=== PATIENT | female | born 1960 | race Caucasian/White ===

== ENCOUNTER 2017-12-01 10:56 | Outpatient (REF) | payer BC, SELFPAY ==
--- NOTE | 2017-12-01 10:30 | PAPFT_PTH ---
PATIENT: Jocelyn Wharton LOC: [facility] U#:[id number] AGE/SX: 57/F ROOM: RE12/01/[address]: RODNEY Marshall : 1960 BED: DIS: 12/01/2017 SPEC #: [id number] RECD: 12/01/17 12:55 STATUS: BLANCA REQ #: [id number] SAEID: 12/01/17 10:[address]: Zakia Hoover DEPT: [facility] Cytology RECD BY: Arleen Kinney ENTERED: 12/01/17 12:55 SP TYPE: PAPFT OTHR DR: Candice Solorio Tissues: 1 - CX/ENDOCX FOR PAP SMEARS Procedures: PAP THIN PREP/UVM Screening HPV DNA PROBE Comments: [id number]
== END 2017-12-01 10:57 ==
LOC: LBN 10:56
PROVIDERS: PCP Family Medicine; Visit Provider Nurse Practitioner Family
DX: Z12.4 Encounter for screening for malignant neoplasm of cervix (principal); Z11.51 Encounter for screening for human papillomavirus (HPV)
CPT/HCPCS: 88142; 87624

== ENCOUNTER 2017-12-18 00:20 | Outpatient (CLI) | payer BC, SELFPAY ==
--- NOTE | 2017-12-18 14:29 | DI.US_ITS ---
SYMPTOM/DIAGNOSIS: DYSPAREUNIA,LLQ PAIN, FREQUENT URINATION PELVIC ULTRASOUND: Transabdominal and transvaginal examination was performed. The uterus measures 8.7 by 4.3 by 4.7 cm. The endometrial stripe is within normal limits at .3 cm. No myometrial mass is present. Note is made of several cervical Nabothian cysts. The right ovary measures 2.4 by 1.4 by 2.4 cm. The left ovary measures 3 by 1.5 by 1.7 cm. The ovaries are unremarkable with normal blood flow. No free pelvic fluid or hydronephrosis is identified. IMPRESSION: Negative pelvic ultrasound.
== END 2017-12-18 00:40 ==
PROVIDERS: PCP Family Medicine; Visit Provider Nurse Practitioner Family
DX: R10.32 Left lower quadrant pain (principal); N94.10 Unspecified dyspareunia; R35.0 Frequency of micturition
CPT/HCPCS: 76830; 76856

== ENCOUNTER 2019-04-04 02:09 | Outpatient (CLI) | payer BC, SELFPAY ==
--- NOTE | 2019-04-04 16:10 | DI.MAMMO_ITS ---
EXAM: MG MAMMO SCREENING CLINICAL HISTORY: screening TECHNIQUE: Mammograms were interpreted according to the usual protocol including computer analysis w [employer] CAD system, tomosynthesis and C-view imaging. FINDINGS: The breasts are heterogeneously dense. No dominant mass or clumped microcalcification is identified in either breast. Current examination is compared with previous examinations including September 2016 and there has been no gross interval change in appearance in comparison with the previous studies. IMPRESSION: No specific evidence of malignancy at this time. Routine screening examinations are suggested at year ly intervals in this age group according to the ACS ACR guidelines. Category 1. Breast density, categ ory C. BI-RADS Cat 1 - Negative. Breast Density - Category C - Heterogeneously dense.
== END 2019-04-04 02:29 ==
PROVIDERS: PCP Family Medicine; Visit Provider Obstetrics & Gynecology Gynecology
DX: Z12.31 Encounter for screening mammogram for malignant neoplasm of breast (principal)
CPT/HCPCS: 77063; 77067

== ENCOUNTER 2019-12-05 09:40 | Outpatient (CLI) | payer BC, SELFPAY ==
--- NOTE | 2019-12-05 09:30 | DI.RAD_ITS ---
EXAM: XR WRIST LT COMPLETE CLINICAL HISTORY: L thumb pain. TECHNIQUE: 2D digital imaging was performed. COMPARISON: No exams were available for comparison FINDINGS: Tnwt-[id number] degenerative changes are seen at the 1st CMC joint characterized by joint space narr owing, subchondral sclerosis and periarticular spurring. The bones are intact and normally mineraliz ed. The soft tissues are unremarkable. 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 DATA REPOSITORY: RADIATION DOSE DELIVERED:
== END 2019-12-05 10:00 ==
PROVIDERS: PCP Family Medicine; Referring Provider Family Medicine; Visit Provider Physician Assistant
DX: M18.9 Osteoarthritis of first carpometacarpal joint, unspecified (principal)
CPT/HCPCS: 73110

== ENCOUNTER 2021-02-15 08:53 | Outpatient (REF) | payer BC, SELFPAY ==
[2021-02-15 17:33] LABS: ALT 28 U/L (14-59); AST 23 U/L (15-37); Albumin 4.2 g/dL (3.4-5.0); Alkaline Phosphatase 107 U/L (46-116); BUN 12 mg/dL (7-18); Bilirubin, Total 0.6 mg/dL (0.2-1.0); CREATININE 0.7 mg/dL (0.55-1.02); Calcium 9.2 mg/dL (8.5-10.1); Calculated LDL 145 mg/dL (<100); Chloride 107 mmol/L (98-107); Cholesterol 252 mg/dL (<200); Glucose 94 mg/dL (74-106); HDL Cholesterol 98 mg/dL (40-60); Potassium 4.6 mmol/L (3.5-5.1); Sodium 145 mmol/L (136-145); Total Protein 7.2 g/dL (6.4-8.2); Triglyceride 49 mg/dL (<150)
[2021-02-15 19:34] LABS: Vitamin D 25 Total 44.6 ng/mL (30-100)
== END 2021-02-15 08:54 | disposition home or self-care (01) ==
LOC: NCHCN 08:53
PROVIDERS: PCP Family Medicine; Visit Provider Family Medicine
DX: Z00.00 Encounter for general adult medical examination without abnormal findings (principal)
CPT/HCPCS: 80053; 80061; 82306

== ENCOUNTER 2021-02-22 16:10 | Outpatient (REF) | payer BC, SELFPAY ==
[2021-02-22 21:13] LABS: Iron 89 ug/dL (50-170); Total Iron Binding Capacity 340 ug/dL (250-450); Transferrin Sat 26 % (15-50)
[2021-02-22 21:44] LABS: Vitamin B12 620 pg/mL (193-986)
== END 2021-02-22 16:11 | disposition home or self-care (01) ==
LOC: NCHCN 16:10
PROVIDERS: PCP Family Medicine; Visit Provider Family Medicine
DX: D64.9 Anemia, unspecified (principal); R10.32 Left lower quadrant pain
CPT/HCPCS: 82607; 83540; 83550

== ENCOUNTER 2021-03-25 02:24 | Outpatient (CLI) | payer BC, SELFPAY ==
--- NOTE | 2021-03-25 15:30 | DI.MAMMO_ITS ---
Exam(s) MAMMO SCREENING EXAM: MAMMO SCREENING CLINICAL HISTORY: SCREENING MAMMOGRAM Z12.31 TECHNIQUE: Mammograms were interpreted according to the usual protocol including computer analysis w [employer] CAD system, tomosynthesis and C-view imaging. COMPARISON: 2011 through 2019 FINDINGS: The breasts are composed of heterogeneously dense fibroglandular densities, Breast Density category C . No suspicious masses or suspicious microcalcifications are seen. No skin thickening or abnormal axillary lymph nodes are seen. There has been no significant change from prior exams. IMPRESSION: BI-RADS Category 1, Negative mammogram. Yearly screening mammography is recommended. Breast Density Category C, heterogeneously Dense. The mammogram demonstrates the patient's breast tissue is dense. Dense breast tissue is very common a nd is not abnormal but dense breast tissue can make it harder to find cancer on a mammogram. Also, de nse breast tissue may increase breast cancer risk. This information about the result of the mammogram report was provided to the patient to raise their awareness. Use this report when you speak with the patient about their risks for breast cancer, which includes their family history. At that time, you may recommend additional screening tests (Ultrasound or MRI) as they might be useful based on their r isk. A negative radiographic report should not delay biopsy if a dominant or clinically suspicious mass is present. Up to ten percent of cancers are not identified on mammography. A negative report may reinforce clinical impression. Adenosis and dense breasts may obscure an underlying neoplasm. False positive reports average 6 to 10%.
== END 2021-03-25 02:44 ==
PROVIDERS: PCP Family Medicine; Visit Provider Family Medicine
DX: Z12.31 Encounter for screening mammogram for malignant neoplasm of breast (principal); R92.8 Other abnormal and inconclusive findings on diagnostic imaging of breast
CPT/HCPCS: 77063; 77067

== ENCOUNTER 2022-03-02 15:13 | Outpatient (REF) | payer BC, SELFPAY ==
--- NOTE | 2022-03-02 14:30 | PAPFT_PTH ---
PATIENT: Jocelyn Wharton LOC: [facility] U#:[id number] AGE/SX: 61/F ROOM: RE03/02/[address]: Tereza Horta : 1960 BED: DIS: 03/02/2022 SPEC #: [id number] RECD: 03/02/22 18:40 STATUS: BLANCA REQ #: [id number] SAEID: 03/02/22 14:[address]: Tereza Horta DEPT: [facility] Cytology RECD BY: Arleen Kinney ENTERED: 03/02/22 18:40 SP TYPE: PAPFT OTHR DR: Candice Solorio Tissues: 1 - CX/ENDOCX FOR PAP SMEARS Procedures: PAP THIN PREP/UVM Screening HPV DNA PROBE Comments: [id number]
== END 2022-03-02 15:14 | disposition home or self-care (01) ==
LOC: LBN 15:13
PROVIDERS: PCP Family Medicine; Visit Provider Obstetrics & Gynecology Gynecology
DX: Z12.4 Encounter for screening for malignant neoplasm of cervix (principal); Z11.51 Encounter for screening for human papillomavirus (HPV)
CPT/HCPCS: 88142; 87624

== ENCOUNTER → 2022-03-31 01:19 | Outpatient (CLI) | payer BC, SELFPAY ==
--- NOTE | 2022-03-31 07:00 | DI.MAMMO_ITS ---
Exam(s) MAMMO SCREENING EXAM: MAMMO SCREENING CLINICAL HISTORY: screening,Z12.39. TECHNIQUE: Bilateral full field digital CC and MLO mammographic images were obtained with 3D tomosyn thesis and utilizing computer aided detection (CAD). COMPARISON: Prior mammograms were reviewed. FINDINGS: There has been no significant change in the appearance and distribution of the fibroglandular tissue. There are no CAD designations. There are no new spiculated masses nor malignant appearing microcalcification groups. There is no significant architectural distortion nor skin thickening-retraction. IMPRESSION: No radiographic evidence of malignancy. BI-RADS Category 1 - Negative Breast Density - Category C - Heterogeneously dense Breast density Category C or D implies that the patient has dense breast tissue. Dense breast tissue can make it harder to find cancer on a mammogram. Dense breast tissue is also associated with an incr eased risk of breast cancer. This information about the result of the mammogram report was provided to the patient to raise their awareness. Use this report when you speak with the patient about their risks for breast cancer, which includes their family history. At that time, you may recommend additional screening tests (Ultrasoun d or MRI) as these tests may add significant information. A negative radiographic report should not delay biopsy if a dominant or clinically suspicious mass is present. Up to ten percent of cancers are not identified on mammography. A negative report may reinforce clinical impression. Adenosis and dense breasts may obscure an underlying neoplasm. False positive reports average 6 to 10%. Patient will receive a letter notifying them of these results.
== END ==
PROVIDERS: PCP Family Medicine; Visit Provider Family Medicine
DX: Z12.31 Encounter for screening mammogram for malignant neoplasm of breast (principal); R92.8 Other abnormal and inconclusive findings on diagnostic imaging of breast
CPT/HCPCS: 77063; 77067

== ENCOUNTER 2022-11-01 20:54 | Emergency (ER) | payer BC, SELFPAY ==
[2022-11-01 21:06] VITALS: BP 133/65; PULSE 57; RESP 16; TEMP 36.8; O2SAT 98
--- NOTE | 2022-11-01 21:18 | W.ED.GENAD ---
Discharge Plan Disposition Patient Disposition: Home Condition: Stable Discharge Details Clinical Impression: Laceration of right middle finger Primary Care Provider: Candice Solorio ED Provider: Zayda Potts Home Meds and New Rx's Prescriptions: New cephalexin 500 mg tablet 500 mg PO BID 5 Days Qty: 10 0RF No Action apple cider vinegar PO valacyclovir [Valtrex] 500 MG tablet 500 mg PO PRN PRN Discharge Instructions Instructions: Finger Laceration (ED), Steristrips (ED) Additional Instructions: Keep clean and dry. Steri-Strips will start to slough off in approximately 4 to 6 days. Keep your finger in the splint and keep it straight for the next 4 to 6 days to allow for better wound healing. Take the antibiotics as directed twice daily with yogurt or probiotic. Return to the ER or be seen sooner for any signs of infection, red streaks drainage swelling or tenderness or concerns. Please take Tylenol or Ibuprofen with food every 4-6 hours as needed for pain and swelling. Follow up with primary care provider in 3-5 days. Return to ED sooner if any worsening or concerns. Increase oral fluids. Referrals: Candice Solorio [Primary Care Provider] - Return if symptoms worsen Medical Decision Making 62 year old female presents to the ED with a chief complaint of right middle finger laceration on the dorsum side. This occurred approximately 2 hours prior to arrival. Patient reports that she was reaching in a broken jar to get some coconut oil out and sliced her finger. She does have full range of motion noted full flexion and extension distal CMS intact. She is up-to-date on her tetanus vaccination. Bleeding is controlled with pressure upon arrival. Discussed options with patient she prefers Dermabond and splinting with Steri-Strips as opposed to suturing. I did discuss the risks and benefits of each. Will place patient on proximately 5 days of cephalexin to treat empirically for infection due to laceration over the joint space. Wound cleaned with normal saline and chlorhexidine scrub by ED staff. Wound well approximated with Dermabond tissue adhesive and 4 Steri-Strips. Will place patient in an aluminum baseball splint. with a small nonadherant dressing. I did discuss strict return instructions and home care instructed her to keep it in the splint and straight for the next 4 to 6 days. Do not get wet. I did discuss directions to return for increased infection. Will place patient on cephalexin twice daily for the next 5 days. This text was generated using [employer] dictation system, please disregard any oddities of phrase or misspellings. HPI General Mode of arrival: ambulatory. Date/Time Provider Initiated Documentation: 11/01/22 21:08. Limitations to Documentation: no limitations. Information obtained by: patient, RN notes reviewed and old records reviewed. HPI Narrative: 62 year old female presents to the ED with a chief complaint of right middle finger laceration on the dorsum side. This occurred approximately 2 hours prior to arrival. Patient reports that she was reaching in a broken jar to get some coconut oil out and sliced her finger. She does have full range of motion noted full flexion and extension distal CMS intact. She is up-to-date on her tetanus vaccination. Bleeding is controlled with pressure upon arrival. Related Data Home Medications Medication Instructions Recorded Confirmed valacyclovir 500 mg tablet 500 mg PO PRN PRN 03/31/15 03/02/22 (Valtrex) apple cider vinegar PO 01/30/20 03/02/22 cephalexin 500 mg tablet 500 mg PO BID 5 days #10 tabs 11/01/22 Previous Rx's Medication Instructions Recorded cephalexin 500 mg tablet 500 mg PO BID 5 days #10 tabs 11/01/22 Allergies Allergy/AdvReac Type Severity Reaction Status Date / Time acetaminophen Allergy Intermediate Hives Verified 11/01/22 21:10 General Stated Complaint: Laceration DIEGO: 4 Review of Systems All systems reviewed & are unremarkable except as noted in HPI and below Integumentary/Breasts Skin/Breast: Reports as per HPI and Reports wounds PFSH All Active Problems (Updated 11/01/22 @ 22:08 by Zayda Potts NP) Laceration of right middle finger (Acute) Left lateral epicondylitis (Acute) Tendonitis of left rotator cuff (Acute) Osteoarthritis of carpometacarpal (CMC) joint of left thumb (Acute) DEPO MEDROL 10/08/21 Carpal tunnel syndrome, right (Acute) Dyspareunia (Acute 12/01/17) Diverticulosis of intestine without bleeding (Acute 12/01/17) Medical History diverticulitis Dyspareunia Onset 09/2017. Nl pelvic u/s. Herpes simplex Mass of breast, right Surgical History Colonoscopy - IV Sedation (01/19/16) cryosurgery skin pulmonic valve replacement (~1966) Tonsillectomy Family History Father Hypertension Social History (Updated 03/02/22 @ 14:41 by Tereza Horta MD) Smoking/Tobacco Use Status: Never Smoking risk assessment performed?: Yes Alcohol Intake: current Alcohol Intake frequency: a few times a week Alcohol type: wine Counseling given: No Drug use: Never Substance use type: does not use Household members: spouse and other Details: H-Cristobal Number of Children: 2 current occupation: svp business development. [employer] Do you feel safe at home: Yes Do you feel safe in your relationship?: Yes Additional Social history: Children: Alina 33, Maddie 31 Female Reproductive History Menstrual control method: permanent sterilization ( vasectomy) Menopause type: natural History History 2 Para 2 Hx # Term Pregnancies 2 Multiple births Hx # Pregnancies Ectopic pregnancies AB induced Hx Number of Living Children 2 AB spontaneous Exam Extrem Right upper extremity: hand Details: laceration 3rd digit dorsal aspect central Details: linear, with motor nerve function intact and with sensation intact Hand/finger images: 1. Approximately 2-1/2 to 3 cm linear laceration noted to the dorsum of the right middle finger extends just medial to the PIP joint. Course Vital Signs Vital signs: Vital Signs Temperature 36.8 C 11/01/22 21:06 Pulse 57 L 11/01/22 21:06 Respiratory Rate 16 11/01/22 21:06 Blood Pressure 133/65 11/01/22 21:06 Pulse Oximetry 98 11/01/22 21:06 Temperature 36.8 C 11/01/22 21:06 Temperature Source Oral 11/01/22 21:06 Pulse 57 L 11/01/22 21:06 Respiratory Rate 16 11/01/22 21:06 Respiratory Effort Normal 11/01/22 21:08 Blood Pressure 133/65 11/01/22 21:06 Pulse Oximetry 98 11/01/22 21:06 Oxygen Delivery Method Room Air 11/01/22 21:06 Oxygen Flow Rate 0 11/01/22 21:06 Pain Level 4 11/01/22 21:06
[2022-11-01] MEDS: Cephalexin 500 MG CAP PO (21:37)
== END 2022-11-01 22:12 | disposition home or self-care (01) ==
PROVIDERS: Emergency Provider Registered Nurse Emergency; PCP Family Medicine
DX: S61.212A Laceration without foreign body of right middle finger without damage to nail, initial encounter (principal); W25.XXXA Contact with sharp glass, initial encounter; Y93.63 Activity, rugby; Y92.010 Kitchen of single-family (private) house as the place of occurrence of the external cause; Y99.9 Unspecified external cause status
CPT/HCPCS: 29130; 99282

== ENCOUNTER 2022-12-08 22:09 | Outpatient (REF) | payer BC, SELFPAY ==
[2022-12-08 22:30] LABS: Anion Gap 8.1 mmol/L (3-11); BUN 9 mg/dL (7-18); CO2 28.9 mmol/L (21.0-32.0); CREATININE 0.7 mg/dL (0.55-1.02); Calcium 9.4 mg/dL (8.5-10.1); Calculated LDL 127 mg/dL (<100); Chloride 103 mmol/L (98-107); Cholesterol 249 mg/dL (<200); Estimated GFR 97.12 (mL/min/1.73m2); Glucose 86 mg/dL (74-106); HDL Cholesterol 105 mg/dL (40-60); Sodium 140 mmol/L (136-145); Triglyceride 88 mg/dL (<150)
== END 2022-12-08 22:10 | disposition home or self-care (01) ==
LOC: NCHCN 22:09
PROVIDERS: PCP Family Medicine; Visit Provider Family Medicine
DX: Z00.00 Encounter for general adult medical examination without abnormal findings (principal); Z13.220 Encounter for screening for lipoid disorders; Z13.228 Encounter for screening for other metabolic disorders
CPT/HCPCS: 80048; 80061

== ENCOUNTER → 2023-04-06 01:48 | Outpatient (CLI) | payer BC, SELFPAY ==
--- NOTE | 2023-04-06 12:22 | DI.MAMMO_ITS ---
Exam(s) MAMMO SCREENING EXAM: MAMMO SCREENING CLINICAL HISTORY: SCREENING, Z12.31 TECHNIQUE: Bilateral full field digital CC and MLO mammographic images were obtained with 3D tomosyn thesis and utilizing computer aided detection (CAD). COMPARISON: Available for comparison. FINDINGS: Masses/Architectural Distortion: None seen. Microcalcifications: No suspicious pleomorphic-type are seen. Skin Thickening/Nipple Retraction: None. IMPRESSION: 1. No significant interval change with no specific features of malignancy noted. 2. Unless there is more urgent need, screening mammography is recommended, as per [place] [employer] guidelines. BI-RADS Category 1 - Negative Breast Density - Category C - Heterogeneously dense Breast density category C or D implies that the patient has dense breast tissue. Dense breast tissue is very common and is not abnormal but dense breast tissue can make it harder to find cancer on a ma mmogram. Also, dense breast tissue may increase their breast cancer risk. This information about the result of the mammogram report was provided to the patient to raise their awareness. Use this report when you speak with the patient about their risks for breast cancer, which includes their family hist ory. At that time, you may recommend for more screening tests (Ultrasound or MRI) as they might be us eful based on their risk. A negative radiographic report should not delay biopsy if a dominant or clinically suspicious mass is present. Up to ten percent of cancers are not identified on mammography. A negative report may reinforce clinical impression. Adenosis and dense breasts may obscure an underlying neoplasm. False positive reports average 6 to 10%. Patient will receive a letter notifying them of these results.
== END ==
PROVIDERS: PCP Family Medicine; Visit Provider Family Medicine
DX: Z12.31 Encounter for screening mammogram for malignant neoplasm of breast (principal)
CPT/HCPCS: 77063; 77067

== ENCOUNTER 2024-05-03 00:13 | Outpatient (CLI) | payer BC, SELFPAY ==
--- NOTE | 2024-05-03 | DI.MAMMO_ITS ---
Exam(s) MAMMO SCREENING EXAM: MAMMO SCREENING CLINICAL HISTORY: SCREENING,Z12,31 TECHNIQUE: Bilateral full field digital CC and MLO mammographic images were obtained with 3D tomosyn thesis and utilizing computer aided detection (CAD). COMPARISON: Available for comparison. FINDINGS: Masses/Architectural Distortion: None seen. Microcalcifications: No suspicious pleomorphic-type are seen. Skin Thickening/Nipple Retraction: None. IMPRESSION: 1. No significant interval change with no specific features of malignancy noted. 2. Unless there is more urgent need, screening mammography is recommended, as per [place] [employer] guidelines. BI-RADS Category 1 - Negative Breast Density - Category C - Heterogeneously dense Breast density category C or D implies that the patient has dense breast tissue. Dense breast tissue is very common and is not abnormal but dense breast tissue can make it harder to find cancer on a ma mmogram. Also, dense breast tissue may increase their breast cancer risk. This information about the result of the mammogram report was provided to the patient to raise their awareness. Use this report when you speak with the patient about their risks for breast cancer, which includes their family hist ory. At that time, you may recommend for more screening tests (Ultrasound or MRI) as they might be us eful based on their risk. A negative radiographic report should not delay biopsy if a dominant or clinically suspicious mass is present. Up to ten percent of cancers are not identified on mammography. A negative report may reinforce clinical impression. Adenosis and dense breasts may obscure an underlying neoplasm. False positive reports average 6 to 10%. Patient will receive a letter notifying them of these results.
== END 2024-05-03 00:33 ==
PROVIDERS: PCP Family Medicine; Visit Provider Family Medicine
DX: Z12.31 Encounter for screening mammogram for malignant neoplasm of breast (principal); R92.333 Mammographic heterogeneous density, bilateral breasts
CPT/HCPCS: 77063; 77067

== ENCOUNTER 2024-12-17 15:03 | Outpatient (REF) | payer BC, SELFPAY ==
[2024-12-17 14:38] LABS: Abs Immature Grans 0.03 10^3/uL (0.0-0.06); HCT 40.8 % (36.0-46.0); HGB 13.7 g/dL (11.2-15.7); Immature Grans % 0.5 %; MCH 30.6 pg (27.0-33.0); MCHC 33.6 % (32.0-36.0); MCV 91 fL (80-95); MPV 11.3 fL (8.0-11.0); Platelet Count 190 10^3/uL (130-400); RBC 4.47 10^6/uL (3.93-5.22); RDW 12.2 % (11.7-14.6); RDW-SD 40.4 fL; WBC 5.72 10^3/uL (4.4-10.8)
[2024-12-17 19:11] LABS: Anion Gap 8.9 mmol/L (3-11); BUN 13 mg/dL (7-18); CO2 28.1 mmol/L (21.0-32.0); Calcium 9.4 mg/dL (8.5-10.1); Chloride 105 mmol/L (98-107); Estimated GFR 99.55 (mL/min/1.73m2); Glucose 93 mg/dL (74-106); Potassium 4.1 mmol/L (3.5-5.1); Sodium 142 mmol/L (136-145)
== END 2024-12-17 15:04 | disposition home or self-care (01) ==
LOC: NCHCN 15:03
PROVIDERS: PCP Family Medicine; Visit Provider Family Medicine
DX: Z00.00 Encounter for general adult medical examination without abnormal findings (principal); K57.30 Diverticulosis of large intestine without perforation or abscess without bleeding
CPT/HCPCS: 80048; 85025

== ENCOUNTER 2025-01-09 04:22 | Outpatient (CLI) | payer BC, MEDICARE, SELFPAY ==
--- NOTE | 2025-01-09 | DI.DEXA_ITS ---
Exam(s) XR DEXA BONE DENSITY W/WO ALISSON EXAM: XR DEXA BONE DENSITY W/WO ALISSON CLINICAL HISTORY: ASYMPTOMATIC MENOPAUSAL STATE Z78.0 POST MENOPAUSAL TECHNIQUE: Routine DEXA evaluation of the lumbar spine, hip, or forearm. COMPARISON: No exams were available for comparison FINDINGS: Performed on a Hologic unit. Lateral image: No compression fracture evident. Lumbar Spine total T-score: -0.8. This is in normal range. Hip total T-score:-0.9. This is in normal range. Independent reading at the level of the femoral neck yields T-score of -1.6. This is osteopenia range. Forearm total T-score: -0.7. This is in normal range. IMPRESSION: Bone mineral density measures in the osteopenia range at the level the femoral neck. Fracture risk at this level is moderate. Other readings are within normal range limits. Note: Any spine fracture indicates 5x risk for subsequent spine fracture and 2x risk for subsequent hip fracture. World Health Organization criteria for BMD interpretation classify patients: Normal...... T- Score at or above -1.0 Osteopenic... T- Score between -1.0 and -2.5 Osteoporosis... T-Score at or below -2.5
== END 2025-01-09 04:42 ==
PROVIDERS: PCP Family Medicine; Visit Provider Family Medicine
DX: Z78.0 Asymptomatic menopausal state (principal)
CPT/HCPCS: 77080

== ENCOUNTER 2025-03-19 10:18 | Outpatient (REF) | payer MEDICARE, SELFPAY ==
[2025-03-19 15:01] LABS: HCT 42.8 % (36.0-46.0); HGB 14.4 g/dL (11.2-15.7); MCH 31.9 pg (27.0-33.0); MCHC 33.6 % (32.0-36.0); MCV 95 fL (80-95); MPV 11.9 fL (8.0-11.0); Platelet Count 202 10^3/uL (130-400); RBC 4.52 10^6/uL (3.93-5.22); RDW 12.3 % (11.7-14.6); RDW-SD 42.5 fL; WBC 11.73 10^3/uL (4.4-10.8)
[2025-03-19 15:28] LABS: ALT 48 U/L (10-49); AST 52 U/L (<34); Albumin 4.6 g/dL (3.2-5.0); Alkaline Phosphatase 151 U/L (46-116); Anion Gap 11.6 mmol/L (3-11); BUN 11 mg/dL (9-23); Bilirubin, Total 1.0 mg/dL (0.2-1.2); CO2 25.4 mmol/L (20.0-31.0); Calcium 9.3 mg/dL (8.3-10.6); Chloride 105 mmol/L (98-107); Glucose 88 mg/dL (74-106); Potassium 4.3 mmol/L (3.5-5.1); Sodium 142 mmol/L (136-145); Total Protein 7.5 g/dL (5.7-8.2)
[2025-03-19 15:33] LABS: Glucose Negative (Negative)
[2025-03-19 15:52] LABS: C & S Indicated? No; RBC 0-2 HPF (0-2); WBC 0-2 HPF (0-5)
== END 2025-03-19 10:19 | disposition home or self-care (01) ==
LOC: NCHCN 10:18
PROVIDERS: PCP Family Medicine; Visit Provider Family Medicine
DX: K57.92 Diverticulitis of intestine, part unspecified, without perforation or abscess without bleeding (principal)
CPT/HCPCS: 80053; 85027; 81003; 81015